=== PATIENT | female | born 2000 | race Native Hawaiian/Other Pacific Islander ===

== ENCOUNTER 2020-08-07 16:57 | Emergency (ER) | payer MEDICAID ==
[2020-08-07 17:24] VITALS: BP 145/95
[2020-08-07] MEDS ORDERED: METOCLOPRAMIDE 10 MG TAB PO ONE (17:37)
[2020-08-07] MEDS ORDERED: ACETAMINOPHEN 325 MG TAB PO ONE (17:37)
--- NOTE | 2020-08-07 18:27 | Emergency Department Report ---
ED Fall HPI - General Chief Complaint: Fall Stated Complaint: HEAD INJURY Time Seen by Provider: 08/07/20 17:25 Source: patient Mode of arrival: Ambulatory - History of Present Illness Initial Comments: Patient is a 19-year-old female presents emergency room with complaints of a fall that occurred around 4:30 PM today. Patient states that she was walking down the steps to take out the trash and accidentally slipped and fell. She states that she believes she missed a step at the last step. She states that she hit her head on the back of the concrete. She states that she does have a laceration to the back of her head and that there was bleeding which has improved. She states that she does have a mild headache and some nausea. She denies any loss of consciousness, vision changes, photophobia, vomiting, numbness, weakness, bowel or bladder continence, neck pain, back pain, any other injury. 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 She states that she had a Tdap 4 years ago. No past medical history. Allergy to penicillin. Last menstrual cycle June 21. - Related Data Allergies Allergy/AdvReac Type Severity Reaction Status Date / Time No Known Allergies Allergy Unverified 08/07/20 17:15 ED Review of Systems ROS: Stated complaint: HEAD INJURY Other details as noted in HPI Comment: All other systems reviewed and negative ED Past Medical Hx - Past Medical History Previous Medical History?: No - Surgical History Past Surgical History?: No - Social History Smoking Status: Never Smoker Substance Use Type: None ED Physical Exam - General Limitations: No Limitations General appearance: alert, in no apparent distress - Head Head exam: Present: other (2.5 cm laceration to the posterior scalp, no active bleeding, no muscle involvement, no foreign body,no skull bony ttp, no crepitus, no deformity) - Eye Eye exam: Present: normal appearance, PERRL, EOMI. Absent: periorbital swelling, periorbital tenderness - ENT ENT exam: Present: mucous membranes moist - Neck Neck exam: Present: normal inspection, full ROM. Absent: tenderness, meningismus - Respiratory Respiratory exam: Present: normal lung sounds bilaterally. Absent: respiratory distress, wheezes, rales, rhonchi, stridor, chest wall tenderness, accessory muscle use, decreased breath sounds, prolonged expiratory - Cardiovascular Cardiovascular Exam: Present: regular rate, normal rhythm, normal heart sounds. Absent: systolic murmur, diastolic murmur, rubs, gallop - Back Exam Back exam: Present: normal inspection, full ROM. Absent: paraspinal tenderness, vertebral tenderness - Neurological Exam Neurological exam: Present: alert, oriented X3, CN II-XII intact, normal gait. Absent: motor sensory deficit - Psychiatric Psychiatric exam: Present: normal affect, normal mood - Skin Skin exam: Present: warm, dry ED Course Vital Signs 08/07/20 08/07/20 08/07/20 17:17 17:43 18:43 Temperature 99.1 F Pulse Rate 98 H Respiratory 18 18 18 Rate Blood Pressure 145/95 O2 Sat by Pulse 95 Oximetry - Laceration /Wound Repair Posterior Head Wound Location: head (posterior scalp) Wound Length (cm): 2 (2.5 cm total) Wound's Depth, Shape: superficial Wound Explored: clean Irrigated w/ Saline (ccs): 500 Betadine Prep?: Yes Volume Anesthetic (ccs): 0 Number of Sutures: 3 (shahram) Progress: Wound irrigated with saline and thoroughly scrubbed with Betadine, no foreign body, no muscle involvement, 3 shahram placed with good skin approximation, no active bleeding, patient tolerated well, no complications ED Medical Decision Making - Medical Decision Making Patient is a 19-year-old female presents emergency room with complaints of a fall that occurred around 4:30 PM today. Patient states that she was walking down the steps to take out the trash and accidentally slipped and fell. She states that she believes she missed a step at the last step. She states that she hit her head on the back of the concrete. She states that she does have a laceration to the back of her head and that there was bleeding which has improved. She states that she does have a mild headache and some nausea. She denies any loss of consciousness, vision changes, photophobia, vomiting, numbness, weakness, bowel or bladder continence, neck pain, back pain, any other injury. 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 She states that she had a Tdap 4 years ago. No past medical history. Allergy to penicillin. Last menstrual cycle June 21. VSS. on exam: 2.5 cm laceration to the posterior scalp, no active bleeding, no muscle involvement, no foreign body,no skull bony ttp, no crepitus, no deformity. Laceration repaired per procedure note with shahram without any complications. Patient given Tylenol and Reglan while in the emergency department and patient was feeling much better. Patient was observed without any further complications. [place] CT head rule is 0, CT head imaging is not recommended. Advised patient Please keep area clean, dry, covered. May wash around area with antibacterial soap and water and pat dry. No hot tub, no pool, no soaking water. Showering is fine. Please return to the emergency room in 7 days for staple removal. Return to emergency room for any new or worsening symptoms. May take Tylenol as needed for pain. Critical care attestation.: If time is entered above; I have spent that time in minutes in the direct care of this critically ill patient, excluding procedure time. ED Disposition Clinical Impression: Head injury Qualifiers: Encounter type: initial encounter Qualified Code(s): S09.90XA - Unspecified injury of head, initial encounter Laceration of scalp Qualifiers: Encounter type: initial encounter Qualified Code(s): S01.01XA - Laceration without foreign body of scalp, initial encounter Disposition: DC-01 TO HOME OR SELFCARE Is pt being admited?: No Does the pt Need Aspirin: No Condition: Stable Instructions: Head Injury, Adult, Sutures, Shahram, or Adhesive Wound Closure, [id number] Additional Instructions: Please keep area clean, dry, covered. May wash around area with antibacterial soap and water and pat dry. No hot tub, no pool, no soaking water. Showering is fine. Please return to the emergency room in 7 days for staple removal. Return to emergency room for any new or worsening symptoms. May take Tylenol as needed for pain. Referrals: your, primary care doctor [Other] - 2-3 Days Time of Disposition: 18:26 Print Language: DANISH
== END 2020-08-07 18:46 | disposition home or self-care (01) ==
LOC: ED 16:57
DX: S01.01XA Laceration without foreign body of scalp, initial encounter (principal); S09.90XA Unspecified injury of head, initial encounter; W01.0XXA Fall on same level from slipping, tripping and stumbling without subsequent striking against object, initial encounter; Y93.89 Activity, other specified; Y92.89 Other specified places as the place of occurrence of the external cause; Y99.8 Other external cause status
CPT/HCPCS: 99282